=== PATIENT | female | born 2000 | race Caucasian/White ===

== ENCOUNTER 2023-03-18 17:10 | Observation (INO) | payer BC, OTHER | END 2023-03-18 19:28 | disposition home or self-care (01) | LOC: LDRP 17:10 | PROVIDERS: ADMIT Obstetrics & Gynecology; ATTEND Obstetrics & Gynecology | DX: O26.892 Other specified pregnancy related conditions, second trimester (principal); R10.9 Unspecified abdominal pain; Z3A.21 21 weeks gestation of pregnancy | CPT/HCPCS: 76815; 81002; 94760; G0378 ==

== ENCOUNTER 2023-06-20 10:06 | Observation (INO) | payer BC ==
[2023-06-20 11:30] LABS: Basophils # (auto) 0 10 ^3/uL (0-0.2); Basophils % (auto) 0.2 % (0.0-2.0); Eosinophils # (auto) 0.1 10 ^3/uL (0-0.8); Eosinophils % (auto) 1.1 % (0.0-7.0); Hematocrit 34.2 % (36.0-46.0); Hemoglobin 11.5 g/dL (12.2-16.2); Lymphocytes # (auto) 1.4 10 ^3/uL (0.4-5.4); Lymphocytes % (auto) 19.3 % (10.0-50.0); Mean Corpuscular Hemoglobin 30.5 pg (28.0-32.0); Mean Corpuscular Hgb Conc. 33.7 g/dL (32.0-36.0); Mean Corpuscular Volume 90.5 fL (80.0-100.0); Monocytes # (auto) 0.6 10 ^3/uL (0-1.3); Monocytes % (auto) 7.9 % (0.0-12.0); Neutrophils # (auto) 5.3 10 ^3/uL (1.6-8.6); Neutrophils % (auto) 71.5 % (37.0-80.0); Red Blood Cells 3.78 10^6/uL (4.0-5.20); Red Cell Distribution Width 12.7 % (11.8-14.3); White Blood Cell 7.4 10^3/uL (4.4-10.8)
[2023-06-20 11:54] LABS: Alanine Aminotransferase 36 U/L (7-40); Albumin 3.8 g/dL (3.2-4.8); Alkaline Phosphatase 147 U/L (46-116); Anion Gap 8 (5-15); Aspartate Aminotransferase 24 U/L (13-40); Bilirubin, Total 0.7 mg/dL (0.2-1.0); Calcium 8.7 mg/dL (8.5-10.1); Carbon Dioxide 22 mmol/L (20-30); Chloride 108 mmol/L (98-107); Glucose 76 mg/dL (74-106); Sodium 138 mmol/L (136-145); Total Protein 6.2 g/dL (5.7-8.2)
[2023-06-20 11:57] LABS: BUN/Creatinine Ratio 8.2 (10.0-20.0); Blood Urea Nitrogen < 5 mg/dL (9-23)
[2023-06-20] MEDS ORDERED: PREN-96 PO (12:11)
[2023-06-20] MEDS ORDERED: URSO300C2 PO (12:15)
== END 2023-06-20 12:22 | disposition home or self-care (01) ==
LOC: LDRP 10:06 → UNDOADMOB 10:06 → LDRP 10:27
PROVIDERS: ADMIT Obstetrics & Gynecology; ATTEND Obstetrics & Gynecology
DX: O26.643 Intrahepatic cholestasis of pregnancy, third trimester (principal); O26.893 Other specified pregnancy related conditions, third trimester; K83.1 Obstruction of bile duct; L29.9 Pruritus, unspecified; Z3A.35 35 weeks gestation of pregnancy
CPT/HCPCS: 36415; 59025; 80053; 81002; 85025; 94760; G0378

== ENCOUNTER 2023-06-23 18:25 | Observation (INO) | payer BC ==
[~2023-06-23 18:25] MED LIST: PREN-96 PO; URSO300C2 PO
== END 2023-06-23 20:08 | disposition home or self-care (01) ==
LOC: LDRP 18:25
PROVIDERS: ADMIT Obstetrics & Gynecology; ATTEND Obstetrics & Gynecology
DX: O26.643 Intrahepatic cholestasis of pregnancy, third trimester (principal); Z3A.35 35 weeks gestation of pregnancy
CPT/HCPCS: 59025; 76818; 81002; 94760; G0378

== ENCOUNTER 2023-06-26 19:00 | Observation (INO) | payer BC ==
[~2023-06-26] VITALS: Ht 152.4 cm; Wt 67.1 kg
== END 2023-06-26 21:04 | disposition home or self-care (01) ==
LOC: LDRP 19:00
PROVIDERS: ADMIT Obstetrics & Gynecology; ATTEND Obstetrics & Gynecology
DX: O26.643 Intrahepatic cholestasis of pregnancy, third trimester (principal); K83.1 Obstruction of bile duct; Z3A.36 36 weeks gestation of pregnancy
CPT/HCPCS: 59025; 76818; 81002; 94760; G0378

== ENCOUNTER 2023-06-29 19:05 | Observation (INO) | payer BC | END 2023-06-29 20:53 | disposition home or self-care (01) | LOC: LDRP 19:05 | PROVIDERS: ADMIT Obstetrics & Gynecology; ATTEND Obstetrics & Gynecology | DX: O26.643 Intrahepatic cholestasis of pregnancy, third trimester (principal); K83.1 Obstruction of bile duct; O62.9 Abnormality of forces of labor, unspecified; Z3A.36 36 weeks gestation of pregnancy | CPT/HCPCS: 59025; 76818; 81002; G0378 ==

== ENCOUNTER 2023-07-02 08:51 | Observation (INO) | payer BC | END 2023-07-02 11:23 | disposition home or self-care (01) | LOC: LDRP 09:33 | PROVIDERS: ADMIT Obstetrics & Gynecology; ATTEND Obstetrics & Gynecology | DX: O26.643 Intrahepatic cholestasis of pregnancy, third trimester (principal); K83.1 Obstruction of bile duct; Z3A.37 37 weeks gestation of pregnancy | CPT/HCPCS: 59025; 76818; 81002; G0378 ==

== ENCOUNTER 2023-07-04 18:50 | Observation (INO) | payer BC | END 2023-07-04 20:29 | disposition home or self-care (01) | LOC: LDRP 18:50 | PROVIDERS: ADMIT Obstetrics & Gynecology; ATTEND Obstetrics & Gynecology | DX: O26.643 Intrahepatic cholestasis of pregnancy, third trimester (principal); K83.1 Obstruction of bile duct; Z3A.37 37 weeks gestation of pregnancy | CPT/HCPCS: 59025; 76818; 94760; G0378 ==

== ENCOUNTER 2023-07-05 08:22 | Inpatient (IN) | payer BC ==
[~2023-07-05] VITALS: Ht 152.4 cm; Wt 68.0 kg
[2023-07-05] MEDS ORDERED: LACTATED RINGER'S 1,000 ML IV SCH (08:45)
[2023-07-05] MEDS ORDERED: PENICILLIN G POT 5MIL/D5 50ML 50 ML IV ONE ×2 (08:45→22:41)
[2023-07-05] MEDS ORDERED: WITCH HAZEL-GLYCERIN PAD TOP PRN (08:45)
[2023-07-05] MEDS ORDERED: LIDOCAINE 2%HCL (LOCAL ANESTH.) INJ 20ML MDV IJ PRN (08:45)
[2023-07-05] MEDS ORDERED: PROMETHAZINE HCL 25 MG/ML 1ML IV PRN (08:45)
[2023-07-05] MEDS ORDERED: DERMOPLAST 60ML BOTTLE TOP PRN (08:45)
[2023-07-05] MEDS ORDERED: LACT. RINGERS/OXYTOCIN 20UNITS 500 ML IV ONE ×2 (08:45→09:15)
[2023-07-05] MEDS ORDERED: PHISODERM TOP SOLN 240ML BTL TOP PRN (08:45)
[2023-07-05] MEDS ORDERED: BUTORPHANOL TARTRATE 2 MG/1 ML VIAL IV PRN ×2 (08:45)
[2023-07-05 10:04] LABS: Basophils # (auto) 0 10 ^3/uL (0-0.2); Basophils % (auto) 0.2 % (0.0-2.0); Eosinophils # (auto) 0.1 10 ^3/uL (0-0.8); Eosinophils % (auto) 0.6 % (0.0-7.0); Hemoglobin 11.8 g/dL (12.2-16.2); Lymphocytes # (auto) 1.2 10 ^3/uL (0.4-5.4); Lymphocytes % (auto) 13.8 % (10.0-50.0); Mean Corpuscular Hemoglobin 30.3 pg (28.0-32.0); Mean Corpuscular Hgb Conc. 33.8 g/dL (32.0-36.0); Mean Corpuscular Volume 89.5 fL (80.0-100.0); Monocytes # (auto) 0.6 10 ^3/uL (0-1.3); Monocytes % (auto) 6.7 % (0.0-12.0); Neutrophils % (auto) 78.7 % (37.0-80.0); Red Blood Cells 3.91 10^6/uL (4.0-5.20); Red Cell Distribution Width 12.1 % (11.8-14.3); White Blood Cell 8.9 10^3/uL (4.4-10.8)
[2023-07-05] MEDS ORDERED: miSOPROStol 50 MCG per PRE-CUT 1/2 TAB PO PRN (10:15)
[2023-07-05 10:18] LABS: Alanine Aminotransferase 35 U/L (7-40); Albumin 3.8 g/dL (3.2-4.8); Alkaline Phosphatase 184 U/L (46-116); Anion Gap 12 (5-15); Aspartate Aminotransferase 25 U/L (13-40); BUN/Creatinine Ratio 13.1 (10.0-20.0); Bilirubin, Total 0.5 mg/dL (0.2-1.0); Blood Urea Nitrogen 8 mg/dL (9-23); Calcium 9.3 mg/dL (8.5-10.1); Carbon Dioxide 20 mmol/L (20-30); Chloride 107 mmol/L (98-107); Glucose 98 mg/dL (74-106); Potassium 3.6 mmol/L (3.5-5.1); Sodium 139 mmol/L (136-145); Total Protein 6.3 g/dL (5.7-8.2)
[2023-07-05 10:35] LABS: Urine Bacteria FEW /hpf (None Seen); Urine Blood Negative /uL (Negative); Urine Clarity HAZY (Clear); Urine Color Colorless (Yellow); Urine Protein, UAD Negative (Negative); Urine Urobilinogen Normal (Negative); Urine WBC 16 /hpf (0 - 5); Urine pH 6.5 (5.0-8.0)
[2023-07-05 10:36] LABS: INR 0.98 (0.9-1.15); Partial Thromboplastin Time 25.4 SEC (24.5-34.5); Prothrombin Time 10.3 sec (9.3-11.8)
[2023-07-05 10:42] LABS: Amphetamine Screen, Urine Neg (NEGATIVE); Barbiturate Scree,Urine Neg (NEGATIVE); Benzodiazephine Screen, Urine Neg (NEGATIVE); Cocaine Screen, Urine Neg (NEGATIVE); Opiate Scree,Urine Neg (NEGATIVE)
[2023-07-05 10:43] LABS: Cannabinoid Screen, Urine Neg (NEGATIVE); Phencyclidine Screen, Urine Neg (NEGATIVE)
[2023-07-05] MEDS ORDERED: PENICILLIN G POTASSIUM 2,500,000 UNITS in D5W 5% 50 ML IV SCH (12:45)
[2023-07-05] MEDS ORDERED: LACT. RINGERS/OXYTOCIN 20UNITS 1,000 ML IV SCH (15:15)
[2023-07-05] MEDS ORDERED: TERBUTALINE SULFATE 1 MG/ML 1ML VIAL SC PRN (15:15)
[2023-07-05] MEDS ORDERED: URSODIOL 300 MG CAP PO SCH (22:00)
[2023-07-05] MEDS ORDERED: [UNRECOGNIZED DRUG - OTHER] PO SCH (22:00)
[2023-07-05] MEDS ORDERED: fentaNYL CITRATE 100 MCG/2 ML VL IV ONE (22:15)
[2023-07-05] MEDS ORDERED: LIDOCAINE HCL 2 %PF INJ 10ML AMP IJ ONE (22:15)
[2023-07-05] MEDS ORDERED: LACTATED RINGER'S 500 ML IV ONE (22:15)
[2023-07-05] MEDS ORDERED: ROPIVACAINE HCL 100 ML ONE (22:55)
[2023-07-05] MEDS ORDERED: ePHEDrine SULFATE 50 MG/ML AMP ONE (22:57)
[2023-07-06] MEDS ORDERED: MINERAL OIL TOPICAL 10ml TOP ONE ×2 (00:28→00:30)
[2023-07-06] MEDS ORDERED: MINERAL OIL TOPICAL 10ml TOP PRN (01:45)
[2023-07-06] MEDS ORDERED: IBUPROFEN 600 MG TAB PO PRN (01:45)
[2023-07-06] MEDS ORDERED: ACETAMINOPHEN 325 MG TAB PO PRN (01:45)
[2023-07-06 03:00] VITALS: BP 120/69; PULSE 80; RESP 18; TEMP 98.5; O2SAT 98
[2023-07-06 07:00] VITALS: PULSE 82; RESP 17; TEMP 98.2; O2SAT 97
[2023-07-06 08:06] LABS: RPR Non Reactive (Non Reactive)
[2023-07-06 10:40] VITALS: BP 123/74; PULSE 89; RESP 17; TEMP 98.3; O2SAT 96
[2023-07-06 15:18] VITALS: BP 121/67; PULSE 73; RESP 17; TEMP 98.1; O2SAT 98
[2023-07-06 19:00] VITALS: BP 133/68; PULSE 88; RESP 18; TEMP 97.9; O2SAT 96
[2023-07-06 20:23] LABS: Basophils # (auto) 0 10 ^3/uL (0-0.2); Basophils % (auto) 0.5 % (0.0-2.0); Eosinophils # (auto) 0 10 ^3/uL (0-0.8); Eosinophils % (auto) 0.5 % (0.0-7.0); Hematocrit 31.3 % (36.0-46.0); Hemoglobin 10.7 g/dL (12.2-16.2); Lymphocytes # (auto) 1.9 10 ^3/uL (0.4-5.4); Lymphocytes % (auto) 20.2 % (10.0-50.0); Mean Corpuscular Hemoglobin 31.1 pg (28.0-32.0); Mean Corpuscular Hgb Conc. 34.1 g/dL (32.0-36.0); Monocytes # (auto) 0.8 10 ^3/uL (0-1.3); Monocytes % (auto) 8.1 % (0.0-12.0); Neutrophils # (auto) 6.8 10 ^3/uL (1.6-8.6); Neutrophils % (auto) 70.7 % (37.0-80.0); Nucleated Red Blood Cells % 0.1 %; Red Blood Cells 3.44 10^6/uL (4.0-5.20); Red Cell Distribution Width 12.4 % (11.8-14.3); White Blood Cell 9.6 10^3/uL (4.4-10.8)
[2023-07-06] MEDS ORDERED: IBU600T PO (20:59)
[2023-07-06] MEDS ORDERED: FERR30CA PO (20:59)
[2023-07-06] MEDS ORDERED: DOCU-265 PO (20:59)
[2023-07-06] MEDS ORDERED: DOCUSATE SOD 100 MG CAP PO SCH (22:00)
[2023-07-06 23:00] VITALS: BP 118/69; PULSE 83; RESP 18; TEMP 98.2; O2SAT 97
[2023-07-07 03:00] VITALS: BP 118/60; PULSE 77; RESP 16; TEMP 98; O2SAT 97
[2023-07-07 07:20] VITALS: BP 127/65; PULSE 73; RESP 16; TEMP 98.4; O2SAT 96
[2023-07-07] MEDS ORDERED: TETANUS-DIPTH-ACEL PERTUSSIS 0.5ML SYR Tdap IM ONE (08:30)
[2023-07-07 10:05] VITALS: BP 113/78; PULSE 95; RESP 16; TEMP 98.4; O2SAT 98
[2023-07-11 19:06] LABS: Treponema pallidum Ab (FTA-Ab) Reactive (Non Reactive)
== END 2023-07-07 10:45 | disposition home or self-care (01) | DRG 807 ==
LOC: OBSVTOIN 08:22 → LDRP 08:22 → UNDOADMOB 08:29 → LDRP 07-06 05:05
PROVIDERS: ADMIT Obstetrics & Gynecology; ATTEND Obstetrics & Gynecology
PROC: 10E0XZZ Delivery of Products of Conception, External Approach (ICD-10-PCS; principal; 2023-07-06)
PROC: 3E0R3BZ Introduction of Anesthetic Agent into Spinal Canal, Percutaneous Approach (ICD-10-PCS; 2023-07-06)
PROC: 00HU33Z Insertion of Infusion Device into Spinal Canal, Percutaneous Approach (ICD-10-PCS; 2023-07-06)
PROC: 10907ZC Drainage of Amniotic Fluid, Therapeutic from Products of Conception, Via Natural or Artificial Opening (ICD-10-PCS; 2023-07-06)
PROC: 3E0234Z Introduction of Serum, Toxoid and Vaccine into Muscle, Percutaneous Approach (ICD-10-PCS; 2023-07-07)
DX: O26.62 Liver and biliary tract disorders in childbirth (principal); Z37.0 Single live birth; O69.81X0 Labor and delivery complicated by cord around neck, without compression, not applicable or unspecified; E78.79 Other disorders of bile acid and cholesterol metabolism; K76.89 Other specified diseases of liver; O99.02 Anemia complicating childbirth; Z3A.37 37 weeks gestation of pregnancy; Z23 Encounter for immunization
CPT/HCPCS: 36415; 59025; 59409; 62282; 80053; 80307; 81001; 81002; 85025; 85610; 85730; 86592; 86850; 86900; 86901; 90715; 94760; 94762; 96360; 96361; 96365; 96366; 96372; G0378; J2540; J2590; J7060

== ENCOUNTER 2025-02-02 18:38 | Emergency (ER) | payer BC ==
[~2025-02-02] VITALS: Ht 152.4 cm; Wt 64.9 kg
[~2025-02-02 18:38] MED LIST changes: +DOCU-265 PO; +FERR30CA PO; +IBU600T PO; -URSO300C2 PO
[2025-02-02 18:51] VITALS: TEMP 97.9
[2025-02-02] MEDS: SODIUM CHLORIDE 0.9% 1,000 ML IV ONE (19:00)
[2025-02-02 19:16] LABS: Hematocrit 34.6 % (36.0-46.0); Hemoglobin 11.9 g/dL (12.2-16.2); Mean Corpuscular Hemoglobin 30.4 pg (28.0-32.0); Mean Corpuscular Volume 88.1 fL (80.0-100.0); Nucleated Red Blood Cells % 0.1 %
[2025-02-02 19:25] LABS: Alanine Aminotransferase 22 U/L (7-40); Albumin 4.2 g/dL (3.2-4.8); Alkaline Phosphatase 115 U/L (46-116); Anion Gap 11 (5-15); BUN/Creatinine Ratio 9.9 (10.0-20.0); Calcium 9.5 mg/dL (8.7-10.4); Carbon Dioxide 23 mmol/L (20-31); Chloride 104 mmol/L (98-107); Glucose 94 mg/dL (74-106); Potassium 3.7 mmol/L (3.5-5.1); Sodium 138 mmol/L (136-145); Total Protein 6.7 g/dL (5.7-8.2)
[2025-02-02 19:26] LABS: Bilirubin, Total 0.6 mg/dL (0.2-1.0)
[2025-02-02 19:34] LABS: Urine Protein, UAD Negative (Negative)
[2025-02-02 19:38] LABS: Blood Urea Nitrogen 7 mg/dL (9-23)
[2025-02-02 19:39] LABS: Amphetamine Screen, Urine Neg (NEGATIVE); Barbiturate Scree,Urine Neg (NEGATIVE); Benzodiazephine Screen, Urine Neg (NEGATIVE); Cannabinoid Screen, Urine Neg (NEGATIVE); Cocaine Screen, Urine Neg (NEGATIVE); Opiate Scree,Urine Neg (NEGATIVE); Phencyclidine Screen, Urine Neg (NEGATIVE)
[2025-02-02 19:40] VITALS: BP 119/68; PULSE 83; RESP 18; O2SAT 98
--- NOTE | 2025-02-02 19:41 | ED.PDOC ---
GI ASSESSMENT HPI Comments 24y F who presents to the ED for chief complaint of nausea and vomiting. Pt states she is currently 33 weeks , , and states 1-2 hours earlier, she was out at restaurant and states she suddenly started to lose peripheral vision in R eye, R arm numbness and then preceded to feel nauseous with associated vomiting episode. Pt states he also had episode of diarrhea afterwards. Pt states afterwards, she felt his generalized weakness and came to the ED for further evaluation. Pt in the ED, states her symptoms had gone away but states she still feels very weak in the ED. Pt otherwise has stable vitals in the ED. Pt denies any other symptoms at this time. Chief Complaint: Nausea/Vomiting Time Seen by MD: 19:39 Reviewed Notes: Medications, Allergies Allergies: Coded Allergies: NO KNOWN ALLERGIES (Unverified , 06/26/23) Home Meds Active Scripts Ferric Maltol (Accrufer) 30 Mg Cap, 30 MG PO BID for 30 Days, #60 CAP 3 Refills take twice a day on an empty stomach, either 1 hour before or 2 hours after a meal Prov:SHWETA ELLINGTON [facility] 07/06/23 Ibuprofen Micronized (MOTRIN TABLET) 600 Mg Tb, 600 MG PO Q6HP PRN for 20 Days, #80 TAB Prov:SHWETA ELLINGTON [facility] 07/06/23 Docusate Sodium (Docusate Sodium) 100 Mg Cap, 100 MG PO HS PRN for 30 Days, #30 CAP 3 Refills Prov:SHWETA ELLINGTON [facility] 07/06/23 Reported Medications Vit W/ Ferrous Fumara ( One Daily) Daily Tab, 1 TAB PO DAILY, #30 TAB 11 Refills 06/20/23 Information Source: Patient, Significant Other Mode of Arrival: Ambulatory Constitutional: reports: malaise, weakness All Other Systems: Reviewed and Negative (see HPI) Physical Exam General Appearance: No Apparent Distress, Normal HEENT: Normal ENT Inspection, Pharynx Normal, TMs Normal Neck: Full Range of Motion, Non-Tender, Normal, Normal Inspection Respiratory: Chest Non-Tender, Lungs Clear, No Accessory Muscle Use, No Respiratory Distress, Normal Breath Sounds Cardiovascular: No Edema, No JVD, No Murmur, No Gallop, Normal Peripheral Pulses, Regular Rate/Rhythm Breast Exam: Deferred Gastrointestinal: No Organomegaly, Non Tender, No Pulsatile Mass, Normal Bowel Sounds, Soft Genitalia: Deferred Pelvic: Deferred Rectal: Deferred Extremities: No calf tenderness, Normal capillary refill, Normal inspection, Normal range of motion, Non-tender, No pedal edema Musculoskeletal : Apperance: Normal Neurologic: Alert, custom tailor apprentice II-XII nml as Tested, No Motor Deficits, Normal Affect, Normal Mood, No Sensory Deficits Cerebellar Function: Normal Reflexes: Normal Skin: Dry, Normal Color, Warm Lymphatic: No Adenopathy Was a procedure done? Was a procedure done?: No GI differential Dx Differential Diagnosis: Gastritis/PUD, Gastroenteritis, UTI, Dehydration, Diabetes/ DKA, Drug toxicity, Electrolyte Imbalance, Food Poisoning, , Hypovolemia, Anemia, Other (anxiety, tia, cva, partial seizure, preecclampsia, ecclapmsia) X-Ray, Labs, Meds, VS Vital Signs Date Time Temp Pulse Resp B/P (MAP) Pulse Ox O2 Delivery O2 Flow Rate FiO2 02/02/25 19:40 83 20 119/68 (85) 98 02/02/25 19:40 83 18 98 Room Air 02/02/25 18:51 97.9 100 16 140/80 (100) 99 97.9 Lab Test 02/02/25 19:12 02/02/25 18:56 Range/Units Urine Color Light-yellow Yellow Urine Clarity Clear Clear Urine pH 6.0 5.0-9.0 Urine Specific Ovid 1.015 1.001-1.035 Urine Protein Negative Negative Urine Ketones 2+ H Negative Urine Blood Negative Negative /uL Urine Nitrite Negative Negative Urine Bilirubin Negative Negative Urine Urobilinogen Normal Negative mg/dL Urine Leukocyte Esterase Negative Negative /uL Urine RBC 2 0 - 4 /hpf Urine Microscopic WBC 3 0-5 /HPF Urine Squamous Epithelial Cells Few <5 /hpf Urine Bacteria None seen None Seen /hpf Urine Mucus Few None Seen Urine Glucose Normal Normal mg/dL Urine Opiates Screen Neg NEGATIVE Urine Fentanyl Screen Neg NEGATIVE Urine Barbiturates Screen Neg NEGATIVE Urine Phencyclidine Screen Neg NEGATIVE Urine Amphetamines Screen Neg NEGATIVE Urine Benzodiazepines Screen Neg NEGATIVE Urine Cocaine Screen Neg NEGATIVE Urine Cannabinoids Screen Neg NEGATIVE White Blood Count 8.8 4.4-10.8 10^3/uL Red Blood Count 3.93 L 4.0-5.20 10^6/uL Hemoglobin 11.9 L 12.2-16.2 g/dL Hematocrit 34.6 L 36.0-46.0 % Mean Corpuscular Volume 88.1 80.0-100.0 fL Mean Corpuscular Hemoglobin 30.4 28.0-32.0 pg Mean Corpuscular Hemoglobin Concent 34.5 32.0-36.0 g/dL Red Cell Distribution Width 12.8 11.8-14.3 % Platelet Count 234 140-450 10^3/uL Mean Platelet Volume 7.1 6.9-10.8 fL Neutrophils (%) (Auto) 79.2 37.0-80.0 % Lymphocytes (%) (Auto) 14.8 10.0-50.0 % Monocytes (%) (Auto) 5.4 0.0-12.0 % Eosinophils (%) (Auto) 0.4 0.0-7.0 % Basophils (%) (Auto) 0.2 0.0-2.0 % Neutrophils # (Auto) 7.0 1.6-8.6 10 ^3/uL Lymphocytes # (Auto) 1.3 0.4-5.4 10 ^3/uL Monocytes # (Auto) 0.5 0-1.3 10 ^3/uL Eosinophils # (Auto) 0 0-0.8 10 ^3/uL Basophils # (Auto) 0 0-0.2 10 ^3/uL Nucleated Red Blood Cells 0.1 % Sodium Level 138 136-145 mmol/L Potassium Level 3.7 3.5-5.1 mmol/L Chloride Level 104 98-107 mmol/L Carbon Dioxide Level 23 20-31 mmol/L Anion Gap 11 5-15 Blood Urea Nitrogen 7 L 9-23 mg/dL Creatinine 0.71 0.550-1.02 mg/dL Glomerular Filtration Rate Calc 121 >90 mL/min BUN/Creatinine Ratio 9.9 L 10.0-20.0 Serum Glucose 94 74-106 mg/dL Calcium Level 9.5 8.7-10.4 mg/dL Total Bilirubin 0.6 0.2-1.0 mg/dL Aspartate Amino Transferase (AST) 25 13-40 U/L Alanine Aminotransferase (ALT) 22 7-40 U/L Alkaline Phosphatase 115 46-116 U/L Total Protein 6.7 5.7-8.2 g/dL Albumin 4.2 3.2-4.8 g/dL Current Medications Medications (Trade) Dose Ordered Sig/Goran Route Start Time Stop Time Status Last Admin Sodium Chloride 1,000 ml @ 150 mls/hr Q6H40M ONCE IV 02/02/25 19:00 02/03/25 01:39 02/02/25 19:00 Time of 1ST Reevaluation: 20:10 Reevaluation 1ST: Unchanged Time of 2ND Reevaluation: 20:00 Reevaluation 3RD: Resolved Patient Education/Counseling: Diagnosis, Treatment, Prognosis, Need For Follow Up Family Education/Counseling: Diagnosis, Treatment, Prognosis, Need For Follow Up SEPSIS Sepsis Screen Date sepsis recognized/suspect: Feb 02, 2025 Time Sepsis recognized/suspect: 1842 Recent Procedure: No On Antibiotic Therapy: No Respiratory Rate >20: No Heart Rate >90: Yes Temp<36 C (96.8 F) or >38.3 C: No SBP <90 or MAP <65 mmHG: No New Acute Mental Status Change: No Is the patient on CPAP, BIPAP,: No Physician Orders Accucheck (02/02/25 18:47) Electrocardigram (02/02/25 18:47) Electrocardigram (02/02/25 19:47) Sodium Chloride 0.9% (02/02/25 19:00) Vital Signs Date Time Temp Pulse Resp B/P (MAP) Pulse Ox O2 Delivery O2 Flow Rate FiO2 02/02/25 19:40 83 20 119/68 (85) 98 02/02/25 19:40 83 18 98 Room Air 02/02/25 18:51 97.9 100 16 140/80 (100) 99 97.9 Laboratory Tests Test 02/02/25 18:56 White Blood Count 8.8 10^3/uL (4.4-10.8) Medications Medications Dose Ordered Sig/Goran Route Start Time Stop Time Status Last Admin Dose Admin Sodium Chloride 1,000 ml @ 150 mls/hr Q6H40M ONCE IV 02/02/25 19:00 02/03/25 01:39 02/02/25 19:00 Departure 1 Departure Time of Disposition: 20:00 Impression: Primary Impression: Paresthesia Additional Impressions: Weakness Disposition: HOME / SELF CARE / HOMELESS Condition: Good Discharged With: Self, Spouse Critical Care Note Critical Care Time?: Yes (55 min-critical care time only) Critical care comment: due to concerns for patient's condition deteriorating, the care required my highest level of attention and readiness to intervene. i assessed the patient's condition, ordered the proper tests and treatments, reassessed for response and reviewed the results. i communicated with medical personnel and formulated a plan of care. total critical care time does not include any procedures Stability Stability form required: No Heart Score Heart Score: Heart Score Response (Comments) Value History N/A 0 EKG N/A 0 Age N/A 0 Risk Factors N/A 0 Troponin N/A 0 Total 0 I personally scribed for ABHISHEK AREVALO MD ([email or web address]) on 02/02/25 at 19:41. Electronically submitted by Artie Hercules ([email or web address]). ABHISHEK AREVALO MD Feb 02, 2025 19:41
== END 2025-02-02 20:29 | disposition home or self-care (01) ==
LOC: ER 18:38
DX: O99.891 Other specified diseases and conditions complicating pregnancy (principal); Z3A.33 33 weeks gestation of pregnancy; Z79.899 Other long term (current) drug therapy
CPT/HCPCS: 36415; 80053; 80307; 81001; 85025; 96360; 99283; J7030

== ENCOUNTER 2025-02-18 10:45 | Observation (INO) | payer BC ==
--- NOTE | 2025-02-18 11:34 | DVH ---
BIOPHYSICAL PROFILE HISTORY: Rule out IUGR TECHNIQUE: Multiple transabdominal real-time grayscale sonographic images through the gravid uterus o f the fetus with duplex doppler color flow and M-mode spectral analysis FINDINGS: BIOPHYSICAL PROFILE: breathing score: 2 movement score: 2 tone score: 2 Quantitative ELFEGO score: 2 (ELFEGO: 10.6 cm.) Total score: 8/8 Single live fetus in cephalic presentation. heart rate 131 beats per minute. Anterior placenta without previa or abruption Biophysical profile score 8/8 corresponding to an PACO of 03/19/25 IMPRESSION: Biophysical profile score: 8/8
--- NOTE | 2025-02-18 13:25 | DVHDS2 ---
Physician Discharge Progress N Final Diagnosis: testing for rule out IUGR Operations or Procedures: Operations or Procedures 24yo IUP@35.6wks, denies UCs/VB/LOF VSS NST reactive FKC/PTL precautions reviewed. Dr. Mendieta ordered NST/BPP and wants pt to f/u weekly Other Interventions Other Interventions [place] [address] Ph: [phone] DIAGNOSTIC IMAGING Diagnostic Imaging Report : [id number] Signed PATIENT: TIFFANI HARRY JACCT: [id number] UNIT: [id number] : 2000 LOC: [facility] ROOM / BED: TRIAGE1 / A AGE / SEX: 24 / F ADM STATUS: ADM IN SERVICE 1051 ORDERING PHYSICIAN: SHWETA ELLINGTON CNM PROCEDURE(s): BPP - BIOPHYSICAL PROFILE REASON: Rule out IUGR ORDER NUMBER(s): [id number], ACCESSION NUMBER(s): [id number] BIOPHYSICAL PROFILE HISTORY: Rule out IUGR TECHNIQUE: Multiple transabdominal real-time grayscale sonographic images through the gravid uterus of the fetus with duplex doppler color flow and M-mode spectral analysis FINDINGS: BIOPHYSICAL PROFILE: breathing score: 2 movement score: 2 tone score: 2 Quantitative ELFEGO score: 2 (ELFEGO: 10.6 cm.) Total score: 8/8 Single live fetus in cephalic presentation. heart rate 131 beats per minute. Anterior placenta without previa or abruption Biophysical profile score 8/8 corresponding to an PACO of 03/19/25 IMPRESSION: Biophysical profile score: 8/8 ATED BY: CHAD DAWN MD DICTATED DATE/TIME: 02/18/25 113 SIGNED BY: CHAD DAWN MD SIGNED DATE/TIME: 02/18/25 113 CC: Condition on Discharge: Stable Disposition: Home Discharge Instructions: Diet: Regular Activity: No Restrictions, As Tolerated Medications: see med list Follow Up Care: Specialist: f/u 1 wk Discharge Statement: "Patient was advised to return to the ER or call 911 if any headaches, dizziness, shortness of breath, chest pain, abdominal pain, bleeding, fevers, or worsening of medical condition. Patient was counseled about treatment plan, medications, possible side effects, patientverbalized understanding. All questions were answered to the best of my ability. This discharge took greater then 30 minutes in planning, reviewing documentation, counseling the patient, and discussing with other team members." Visit Coding OBGYN Date of Service: Feb 18, 2025 Billing Provider: SHWETA ELLINGTON CNM ORGANIC CHEMIST Common Visit Codes: [id number] OBS CARE (HIGH) ORGANIC CHEMIST Procedure Codes: 34213-26- NON-STRESS TEST SHWETA ELLINGTON CNM Feb 18, 2025 13:25
== END 2025-02-18 12:03 | disposition home or self-care (01) ==
LOC: UNDOADMOB 10:45 → LDRP 10:45
PROVIDERS: ADMIT Obstetrics & Gynecology; ATTEND Obstetrics & Gynecology
DX: Z36.89 Encounter for other specified antenatal screening (principal); Z3A.35 35 weeks gestation of pregnancy; Z98.890 Other specified postprocedural states; Z79.899 Other long term (current) drug therapy
CPT/HCPCS: 76818; 81002; 94760; G0378; 59025; 76819

== ENCOUNTER 2025-02-25 10:50 | Observation (INO) | payer BC ==
--- NOTE | 2025-02-25 12:10 | DVH ---
EXAM: US BIOPHYSICAL PROFILE HISTORY: IUGR COMPARISON: US BIOPHYSICAL PROFILE on DOS: 02/18/25 TECHNIQUE: Transabdominal and endovaginal real time youngblood scale, color, and doppler evaluation. Perman ent images are maintained in the patient record. FINDINGS: Normal biophysical profile score. 02/14. heart rate 146 beats per minute. Cephalic presentation . Anterior placenta location. Amniotic fluid index measures 11 cm. No placenta abruption or previa. IMPRESSION: 1. Single viable gestation with normal cardiac heart rate. 2. Normal biophysical profile score
--- NOTE | 2025-02-25 13:58 | DVHDS2 ---
Physician Discharge Progress N Final Diagnosis: testing for rule out IUGR Operations or Procedures: Operations or Procedures 24yo IUP@36.6wks. +FM, denies VB/UCs/LOF. VSS NST reactive FKC/PTL precautions reviewed. Dr. Mendieta consulted, agrees with POC. Pt is to f/u with Dr. Mendieta in office weekly, no need for testing anymore. Other Interventions Other Interventions [place] [address] Ph: [phone] DIAGNOSTIC IMAGING Diagnostic Imaging Report : [id number] Signed PATIENT: TIFFANI HARRY JACCT: [id number] UNIT: [id number] : 2000 LOC: [facility] ROOM / BED: TRIAGE3 / A AGE / SEX: 24 / F ADM STATUS: ADM IN SERVICE 1100 ORDERING PHYSICIAN: SHWETA ELLINGTON CNM PROCEDURE(s): BPP - BIOPHYSICAL PROFILE REASON: IUGR ORDER NUMBER(s): [id number], ACCESSION NUMBER(s): [id number] EXAM: US BIOPHYSICAL PROFILE HISTORY: IUGR COMPARISON: US BIOPHYSICAL PROFILE on DOS: 02/18/25 TECHNIQUE: Transabdominal and endovaginal real time youngblood scale, color, and doppler evaluation. Permanent images are maintained in the patient record. FINDINGS: Normal biophysical profile score. 8/8. heart rate 146 beats per minute. Cephalic presentation. Anterior placenta location. Amniotic fluid index measures 11 cm. No placenta abruption or previa. IMPRESSION: 1. Single viable gestation with normal cardiac heart rate. 2. Normal biophysical profile score ATED BY: ZOEY VU MD DICTATED DATE/TIME: 02/25/25 120 SIGNED BY: ZOEY VU MD SIGNED DATE/TIME: 02/25/25 120 CC: Condition on Discharge: Stable Disposition: Home Discharge Instructions: Diet: Regular Activity: No Restrictions, As Tolerated Follow Up/Referral: Keep all OB appointments. NO further monitoring required in [facility] Medications: see med list Follow Up Care: Specialist: Pt is to f/u with Dr. Mendieta in office weekly Discharge Statement: "Patient was advised to return to the ER or call 911 if any headaches, dizziness, shortness of breath, chest pain, abdominal pain, bleeding, fevers, or worsening of medical condition. Patient was counseled about treatment plan, medications, possible side effects, patientverbalized understanding. All questions were answered to the best of my ability. This discharge took greater then 30 minutes in planning, reviewing documentation, counseling the patient, and discussing with other team members." Visit Coding OBGYN Date of Service: Feb 25, 2025 Billing Provider: SHWETA ELLINGTON CNM MANAGER HEAVY DUTY Common Visit Codes: [id number] OBS CARE (HIGH) MANAGER HEAVY DUTY Procedure Codes: 80193-74- NON-STRESS TEST SHWETA ELLINGTON CNM Feb 25, 2025 13:58
== END 2025-02-25 12:50 | disposition home or self-care (01) ==
LOC: LDRP 10:50
PROVIDERS: ADMIT Obstetrics & Gynecology; ATTEND Obstetrics & Gynecology
DX: Z36.89 Encounter for other specified antenatal screening (principal); Z3A.36 36 weeks gestation of pregnancy; Z98.890 Other specified postprocedural states; Z79.899 Other long term (current) drug therapy
CPT/HCPCS: 76818; 81002; 94760; G0378; 59025; 76819

== ENCOUNTER 2025-03-12 08:54 | Inpatient (IN) | payer BC ==
[~2025-03-12] VITALS: Ht 152.4 cm; Wt 65.3 kg
[2025-03-12] MEDS ORDERED: BUTORPHANOL TARTRATE 2 MG/1 ML VIAL IV PRN ×2 (09:15)
[2025-03-12] MEDS ORDERED: LIDOCAINE 2%HCL (LOCAL ANESTH.) INJ 20ML MDV IJ PRN (09:15)
--- NOTE | 2025-03-12 09:20 | DVHHP2 ---
OB CC & HPI Date Date of Admission: Mar 12, 2025 Patient Identification: : 2 Para: 1 EDC: Mar 19, 2025 EGA: 39wks Chief Complaints: Reason for admission: active labor Admission Nurse Assessment Rev: No History of Present Complaints pt is admitted for active lABOR,NO ROM OR VAG BLEEDINHG Past Medical History Cardiac: No pertinent Hx Pulmonary: No pertinent Hx Central Nervous System: No pertinent Hx GI: No pertinent Hx Hemotology/Oncology: No pertinent Hx Hepatobiliary: No pertinent Hx Psychiatric: No pertinent Hx Musculoskeletal: No pertinent Hx Rheumotologic: No pertinent Hx Infectious Disease: No peritnent Hx ENT: No pertinent Hx Renal/: No pertinent Hx Endocrine: No pertinent Hx Dermatology: No pertinent Hx Past Surgical History: No pertinent Hx OB History OB History Care: Good Care Ultrasounds: Normal mid trimester US Obstetrical Complications: None Medical Complications: None Allergies: Coded Allergies: NO KNOWN ALLERGIES (Unverified , 06/26/23) Home Meds Active Scripts Ferric Maltol (Accrufer) 30 Mg Cap, 30 MG PO BID for 30 Days, #60 CAP 3 Refills take twice a day on an empty stomach, either 1 hour before or 2 hours after a meal Prov:SHWETA ELLINGTON [facility] 07/06/23 Ibuprofen Micronized (MOTRIN TABLET) 600 Mg Tb, 600 MG PO Q6HP PRN for 20 Days, #80 TAB Prov:SHWETA ELLINGTON [facility] 07/06/23 Docusate Sodium (Docusate Sodium) 100 Mg Cap, 100 MG PO HS PRN for 30 Days, #30 CAP 3 Refills Prov:SHWETA ELLINGTON [facility] 07/06/23 Reported Medications Vit W/ Ferrous Fumara ( One Daily) Daily Tab, 1 TAB PO DAILY, #30 TAB 11 Refills 06/20/23 Current Medications Current Medications Medications (Trade) Dose Ordered Sig/Goran Route PRN Reason Start Time Stop Time Status Last Admin Lactated Ringer's 1,000 ml @ 125 mls/hr Q8H IV 03/12/25 09:15 UNV Witch Mary (Tucks) 1 pad PRN PRN TOP PERINEAL AREA DISCOMFORT 03/12/25 09:15 UNV Sodium Lauryl Sulfate (Phisoderm) 240 ml PRN PRN TOP PERINEAL AREA DISCOMFORT 03/12/25 09:15 UNV Benzocaine (Dermoplast) 1 applic PRN PRN TOP PERINEAL AREA DISCOMFORT 03/12/25 09:15 UNV Butorphanol Tartrate (Stadol Injection) 1 mg Q4HPRN PRN IV MODERATE PAIN (4-6 PAIN SCALE) 03/12/25 09:15 UNV Butorphanol Tartrate (Stadol Injection) 2 mg Q4HPRN PRN IV SEVERE PAIN (7-10 PAIN SCALE) 03/12/25 09:15 UNV Lidocaine HCl (Xylocaine) 20 ml ONCE PRN IJ PERINEAL AREA DISCOMFORT 03/12/25 09:15 UNV Family & Social History Family/Social History Blood Type: Unknown Rubella: unknown RPR/VDRL: Negative GBS Status: Negative HBsAG: Negative Review of Systems Constitutional: No symptom reported Ears, Nose, & Throat: No symptom reported Eyes: No symptom reported Pulmonary/Respiratory: No symptom reported Cardiovascular: No symptom reported Gastrointestinal: No symptom reported Genitourinary: No symptom reported Musculoskeletal: No symptom reported Skin: No symptom reported Psychiatric: No symptom reported Endocrine: No symptom reported Hemotologic/Lymphatic: No symptom reported OB Admission Exam Physical Exam HEENT: TMs Normal, Fontanelles Normal, Nasal Mucosa Normal, Eyes non-injected, Oropharynx Normal, PERRLA, Moist Membranes, EOMI Heart: Rhythm Normal Lungs: Clear Abdomen: Non tender Extremities: Normal Reflexes: Normal Cervical Dilatation: 6cm Effacement: 75% Station: -2 Membranes: Intact Heart Rate: 130's Accelerations: Accelerations Present Decelerations: No Decelerations Short Term Variability: Present Junior Brand Manager Variability: Average (6-25) Contractions on Admission: < 5 Minutes Apart Intensity: Moderate OB Plan Plan Admitting Diagnosis: IUP AT 39WKS IN ACTIVE labor Plan: Expectant Management Other Plan: INFORMED CONSENT OBTAINED Visit Coding OBGYN Date of Service: Mar 12, 2025 Billing Provider: KIMBERLY ENG DO ROLL TENDER Common Visit Codes: [id number] OBS CARE (HIGH) ROLL TENDER Procedure Codes: 64384-29- NON-STRESS TEST KIMBERLY ENG DO Mar 12, 2025 09:20
[2025-03-12 09:35] LABS: Hematocrit 33.8 % (36.0-46.0); Hemoglobin 11.4 g/dL (12.2-16.2); Mean Corpuscular Hemoglobin 29.5 pg (28.0-32.0); Mean Corpuscular Volume 87.8 fL (80.0-100.0); Nucleated Red Blood Cells % 0.0 %
[2025-03-12 09:44] LABS: Urine Protein, UAD Negative (Negative)
[2025-03-12] MEDS ORDERED: NALOXONE HCL 0.4 MG/ML VIAL IV ONE (09:45)
[2025-03-12] MEDS: LACTATED RINGER'S 1,000 ML IV SCH (09:49)
[2025-03-12 09:50] LABS: INR 1.02 (0.9-1.15); Partial Thromboplastin Time 25.1 SEC (24.5-34.5); Prothrombin Time 10.8 sec (9.3-11.8)
[2025-03-12] MEDS: ROPIVACAINE HCL 100 ML ONE (09:50)
[2025-03-12] MEDS: DERMOPLAST 60ML BOTTLE TOP PRN (09:54)
[2025-03-12] MEDS: PHISODERM TOP SOLN 240ML BTL TOP PRN (09:54)
[2025-03-12] MEDS: WITCH HAZEL-GLYCERIN PAD TOP PRN (09:54)
[2025-03-12 09:55] LABS: Alanine Aminotransferase 17 U/L (7-40)
[2025-03-12 09:56] LABS: Albumin 3.6 g/dL (3.2-4.8); Anion Gap 11 (5-15); BUN/Creatinine Ratio 10.3 (10.0-20.0); Bilirubin, Total 0.5 mg/dL (0.2-1.0); Glucose 86 mg/dL (74-106); Sodium 138 mmol/L (136-145); Total Protein 6.3 g/dL (5.7-8.2)
[2025-03-12] MEDS: LACT. RINGERS/OXYTOCIN 20UNITS 1,000 ML IV ONE (09:56)
[2025-03-12 10:00] LABS: Alkaline Phosphatase 159 U/L (46-116); Blood Urea Nitrogen 7 mg/dL (9-23); Calcium 8.3 mg/dL (8.7-10.4); Carbon Dioxide 20 mmol/L (20-31); Chloride 107 mmol/L (98-107); Potassium 3.3 mmol/L (3.5-5.1)
[2025-03-12 10:01] LABS: Amphetamine Screen, Urine Neg (NEGATIVE); Barbiturate Scree,Urine Neg (NEGATIVE); Benzodiazephine Screen, Urine Neg (NEGATIVE); Cannabinoid Screen, Urine Neg (NEGATIVE); Cocaine Screen, Urine Neg (NEGATIVE); Opiate Scree,Urine Neg (NEGATIVE); Phencyclidine Screen, Urine Neg (NEGATIVE)
[2025-03-12] MEDS: LACT. RINGERS/OXYTOCIN 20UNITS 500 ML IV ONE ×2 (11:53→11:54)
[2025-03-12] MEDS ORDERED: ACETAMINOPHEN 325 MG TAB PO PRN (12:00)
--- NOTE | 2025-03-12 12:50 | LDN2 ---
Labor and Delivery Note Date 03/12/25 Age 24 2 Para 2 EDC 9-10 EGA 39wks Diagnosis labor Vaginal Delivery: VTX Vacuum Assisted: No Placenta: Spontaneous Sex: Female Nuchal Cord Transected: No Amniotic Fluid: Clear Anesthesia epidural Episiotomy: No Extension: No EBL 300ml Labs Blood Bank 03/12/25 09:15: Blood Type O POSITIVE Complications none pt had declined afp and nipt ,cancelled mfm apt Comments/Significant Med Falguni spec exam no cxal lac Visit Coding OBGYN Date of Service: Mar 12, 2025 Billing Provider: KIMBERLY ENG DO COATINGS INSPECTOR Common Visit Codes: [id number] OBS CARE (HIGH) COATINGS INSPECTOR Procedure Codes: [id number]-WJX DELIVERY ONLY KIMBERLY ENG DO Mar 12, 2025 12:50
[2025-03-12] MEDS: IBUPROFEN 600 MG TAB PO PRN (13:10)
[2025-03-12 15:24] VITALS: BP 116/56; PULSE 77; RESP 18; TEMP 98.7; O2SAT 97
[2025-03-12] MEDS ORDERED: IBU600T PO (18:13)
[2025-03-12] MEDS ORDERED: DOCU-265 PO (18:13)
--- NOTE | 2025-03-12 18:20 | DVHPN2 ---
Progress Note Date Seen: Mar 12, 2025 Subjective S: Pt requesting to be discharged tonight so she can go see her baby in [facility]. bleeding is less, eating food without issues, denies lightheaded/dizziness, no concerns with urinating, passing flatus, no BM yet, ambulating well, using breast pump vital signs Vital Sign Date Time Temp Pulse Resp B/P (MAP) Pulse Ox O2 Delivery O2 Flow Rate FiO2 03/12/25 15:24 98.7 77 18 116/56 (76) 97 98.7 03/12/25 13:00 Room Air medications Current Medications Medications Dose Ordered Sig/Goran Route Start Time Stop Time Status Last Admin Dose Admin Lactated Ringer's 1,000 ml @ 125 mls/hr Q8H IV 03/12/25 09:15 03/12/25 09:49 125 MLS/HR Witch Mary 1 pad PRN PRN TOP 03/12/25 09:15 03/12/25 09:54 1 PAD Sodium Lauryl Sulfate 240 ml PRN PRN TOP 03/12/25 09:15 03/12/25 09:54 240 ML Benzocaine 1 applic PRN PRN TOP 03/12/25 09:15 03/12/25 09:54 1 APPLIC Ibuprofen 600 mg Q6HP PRN PO 03/12/25 12:00 03/12/25 13:10 600 MG Acetaminophen 650 mg Q4HP PRN PO 03/12/25 12:00 laboratory and microbiology Laboratory Tests 03/12/25 09:15 Test 03/12/25 09:15 Range/Units Serum Glucose 86 74-106 mg/dL Objective O: VSS Chest: heart sounds normal and lung sounds clear bilaterally Abd: soft, non-tender, fundus at U/firm/midline, active bowel sounds, no rebound or guarding Perineum: intact, 1+ edema noted, no erythema noted (ice pack applied to perineum) Ext: Non-tender, No edema, 2+ BLE DTRs Lochia: minimal Problems(with codes): (1) (normal spontaneous vaginal delivery) (2) Intact perineum Assessment/Plan A: 24yo now PPD#0 s/p Intact perineum Rh+ Rubella Immune Pumping breast milk, baby in NICU at [facility] P: D/C home tonight Rx sent to pharmacy precautions and preeclampsia warning signs reviewed F/U with [facility] OB office in 2 weeks with Rcik Patel CNM Plan discussed with: Patient Visit Coding OBGYN Date of Service: Mar 12, 2025 Billing Provider: SHWETA PATEL CNM HEADER UP Common Visit Codes: [id number] INP/OBS CARE(LOW) SHWETA PATEL CNM Mar 12, 2025 18:20
--- NOTE | 2025-03-12 18:21 | DVHDS2 ---
Obstetrics Discharge Summary Obstetrics Discharge Summary Date of Admission: Mar 12, 2025 Date of Discharge: Mar 12, 2025 Reason For Admission: Onset of Labor Procedures: NST Intrapartum Procedures: Spontaneous vaginal deliv Procedures: None Operative Complicat: None Discharge Diagnosis: Term -Delivered Discharge Information: Activity (as tolerated, no heavy lifting and nothing in the vagina for 6 weeks), Diet (Routine), Medications (Rx sent), Instructions (Routine), Discharge to (Home), Accompanied by (partner), Discarge date (03/12/25) Visit Coding OBGYN Date of Service: Mar 12, 2025 Billing Provider: SHWETA ELLINGTON CNM ACCOUNT ASSOCIATE Common Visit Codes: [id number]-BWJ/OBS DISCH DAY <30MIN SHWETA ELLINGTON CNM Mar 12, 2025 18:21
[2025-03-12 19:00] VITALS: BP 125/73; PULSE 73; RESP 18; TEMP 98.4; O2SAT 96
[2025-03-12 21:03] VITALS: BP 125/73; PULSE 73; RESP 17; TEMP 98.4; O2SAT 96
== END 2025-03-12 20:57 | disposition home or self-care (01) | DRG 807 ==
LOC: LDRP 08:54 → OBSVTOIN 08:54
PROVIDERS: ADMIT Obstetrics & Gynecology; ATTEND Obstetrics & Gynecology
PROC: 10E0XZZ Delivery of Products of Conception, External Approach (ICD-10-PCS; principal; 2025-03-12)
PROC: 3E0R3BZ Introduction of Anesthetic Agent into Spinal Canal, Percutaneous Approach (ICD-10-PCS; 2025-03-12)
PROC: 00HU33Z Insertion of Infusion Device into Spinal Canal, Percutaneous Approach (ICD-10-PCS; 2025-03-12)
DX: O80 Encounter for full-term uncomplicated delivery (principal); Z37.0 Single live birth; Z3A.39 39 weeks gestation of pregnancy
CPT/HCPCS: 36415; 59409; 62282; 80053; 80307; 81001; 85025; 85610; 85730; 86780; 86803; 86850; 86900; 86901; 94760; 94762; 96360; 96361; 96365; 96366; G0378; J2590

== ENCOUNTER 2025-04-04 22:04 | Emergency (ER) | payer BC ==
[~2025-04-04] VITALS: Ht 152.4 cm; Wt 63.1 kg
[~2025-04-04 22:04] MED LIST changes: -FERR30CA PO
--- NOTE | 2025-04-04 22:46 | ED.PDOC ---
Eye-HPI HPI Comments 24-YEAR-OLD FEMALE PATIENT PRESENTS TO THE ED WITH CC OF MASTITIS/ BODY ACHES AND PAINS. PT STATES SHE IS 3 WEEKS POSTPARDUM VAGINAL DELIVERY AND WENT TO HER OBGYN DUE TO MASTITIS, PT WAS GIVEN ANTIBIOTICS WHICH SHE TOOK FOR 7 DAYS, SHE STATES THE PAIN IS GETTING WORSE. PT IS A&OX4 RR EVN AND REGULAR NO. DENIES F EVER, CHILLS, NAUSEA, VOMITING, CHEST PAIN, SHORTNESS OF BREATH, DIFFICULTY BREATHING. Chief Complaint: Body Pain Time Seen by MD: 22:19 Reviewed Notes: Nurses Notes, Medications, Allergies Allergies: Coded Allergies: NO KNOWN ALLERGIES (Unverified , 06/26/23) Home Meds Active Scripts Ibuprofen Micronized (MOTRIN TABLET) 600 Mg Tb, 600 MG PO Q6HP PRN for 20 Days, #80 TAB Prov:SHWETA ELLINGTON [facility] 03/12/25 Docusate Sodium (Docusate Sodium) 100 Mg Cap, 100 MG PO HS PRN for 30 Days, #30 CAP 3 Refills Prov:SHWETA ELLINGTON [facility] 03/12/25 Reported Medications Vit W/ Ferrous Fumara ( One Daily) Daily Tab, 1 TAB PO DAILY, #30 TAB 11 Refills 06/20/23 Information Source: Patient Mode of Arrival: Ambulatory Past Medical History PAST MEDICAL HISTORY: Denies Surgical History: Denies all surgeries INSPECTOR CRYSTAL History: No Pertinent INSPECTOR CRYSTAL History Family History Family History: Reviewed,noncontributory to illness Social History Smoker: Non-Smoker Alcohol: Denies ETOH Use Drugs: Denies Drug Use All Other Systems: Reviewed and Negative (SEE HPI) Physical Exam General Appearance: No Apparent Distress, Normal HEENT: Normal ENT Inspection, Pharynx Normal, TMs Normal Neck: Full Range of Motion, Non-Tender Respiratory: Lungs Clear, No Respiratory Distress, Normal Breath Sounds Cardiovascular: No Edema, No JVD, No Murmur, No Gallop, Normal Peripheral Pulses, Regular Rate/Rhythm Breast Exam: Deferred Gastrointestinal: No Organomegaly, Non Tender, No Pulsatile Mass, Normal Bowel Sounds, Soft Genitalia: Deferred Pelvic: Deferred Rectal: Deferred Extremities: No calf tenderness, Normal capillary refill, Normal range of mot ion, No pedal edema Musculoskeletal : Apperance: Normal Neurologic: Alert, No Motor Deficits, Normal Affect, Normal Mood, No Sensory Deficits Cerebellar Function: Normal Reflexes: NOT DONE Skin: Dry, Normal Color, Warm, Other (NO TENDERNESS OR ERYTHEMA NOTED RIGHT BREAST ) Lymphatic: No Adenopathy Was a procedure done? Was a procedure done?: No EENT DIFF Eye: N/A Ear: N/A Nose: N/A Mouth: N/A Sore Throat: N/A X-Ray, Labs, Meds, VS Vital Signs Date Time Temp Pulse Resp B/P (MAP) Pulse Ox O2 Delivery O2 Flow Rate FiO2 04/05/25 05:45 98.7 125 18 102/57 (72) 97 98.7 04/05/25 03:30 99.4 112 17 123/66 (85) 95 99.4 04/04/25 23:30 98.7 109 19 100/61 (74) 98 98.7 04/04/25 23:30 109 19 98 Room Air 04/04/25 22:05 98.2 122 15 108/66 96 98.2 Lab Test 04/04/25 23:52 04/04/25 23:45 04/04/25 23:00 04/04/25 22:50 Range/Units Lactic Acid Level 0.9 0.4-2.0 mmol/L Urine Color Colorless Yellow Urine Clarity Turbid H Clear Urine pH 6.0 5.0-9.0 Urine Specific [place] 1.008 1.001-1.035 Urine Protein Negative Negative Urine Ketones Negative Negative Urine Blood Negative Negative /uL Urine Nitrite Negative Negative Urine Bilirubin Negative Negative Urine Urobilinogen Normal Negative mg/dL Urine Leukocyte Esterase 3+ Negative /uL Urine RBC 7 0 - 4 /hpf Urine Microscopic WBC 27 H 0-5 /HPF Urine Squamous Epithelial Cells Mod <5 /hpf Urine Bacteria Few H None Seen /hpf Urine Glucose Normal Normal mg/dL White Blood Count 32.2 *H 4.4-10.8 10^3/uL Red Blood Count 4.60 4.0-5.20 10^6/uL Hemoglobin 12.9 12.2-16.2 g/dL Hematocrit 39.9 36.0-46.0 % Mean Corpuscular Volume 86.8 80.0-100.0 fL Mean Corpuscular Hemoglobin 28.1 28.0-32.0 pg Mean Corpuscular Hemoglobin Concent 32.3 32.0-36.0 g/dL Red Cell Distribution Width 13.5 11.8-14.3 % Platelet Count 340 140-450 10^3/uL Mean Platelet Volume 6.7 L 6.9-10.8 fL Neutrophils (%) (Auto) 37.0-80.0 % Lymphocytes (%) (Auto) 10.0-50.0 % Monocytes (%) (Auto) 0.0-12.0 % Basophils (%) (Auto) 0.0-2.0 % Neutrophils # (Auto) 1.6-8.6 10 ^3/uL Lymphocytes # (Auto) 0.4-5.4 10 ^3/uL Monocytes # (Auto) 0-1.3 10 ^3/uL Differential Total Cells Counted 100.0 100 Neutrophils % (Manual) 93 H 37.0-80.0 Band Neutrophils % (Manual) 0 Lymphocytes % (Manual) 6 L 10.0-50.0 Monocytes % (Manual) 1 0-12 Eosinophils % (Manual) 0 0-7 Basophils % (Manual) 0 0.0-2.0 Metamyelocytes % (manual) 0 Myelocytes % (Manual) 0 Promyelocytes % (Manual) 0 Blast Cells % (Manual) 0 Reactive Lymphocytes 0 Platelet Estimate Adequate Sodium Level 136 136-145 mmol/L Potassium Level 4.3 3.5-5.1 mmol/L Chloride Level 103 98-107 mmol/L Carbon Dioxide Level 22 20-31 mmol/L Anion Gap 11 5-15 Blood Urea Nitrogen 9 9-23 mg/dL Creatinine 1.27 H 0.550-1.02 mg/dL Glomerular Filtration Rate Calc 60 >90 mL/min BUN/Creatinine Ratio 7.1 L 10.0-20.0 Serum Glucose 109 H 74-106 mg/dL Calcium Level 9.6 8.7-10.4 mg/dL Total Bilirubin 1.0 0.2-1.0 mg/dL Aspartate Amino Transferase (AST) 18 13-40 U/L Alanine Aminotransferase (ALT) 26 7-40 U/L Alkaline Phosphatase 87 46-116 U/L Total Protein 7.3 5.7-8.2 g/dL Albumin 4.3 3.2-4.8 g/dL Influenza Type A Antigen Negative Negative Influenza Type B Antigen Negative Negative SARS-CoV-2 Antigen (Rapid) Negative NEGATIVE Current Medications Medications (Trade) Dose Ordered Sig/Goran Route Start Time Stop Time Status Last Admin Vancomycin HCl 250 ml @ 250 mls/hr ONCE ONCE IV 04/05/25 03:00 04/05/25 03:59 DC 04/05/25 04:16 Sodium Chloride 1,000 ml @ 1,000 mls/hr Q1H ONCE IV 04/05/25 05:45 04/05/25 06:44 04/05/25 05:48 X-Ray, Labs, Meds, VS Comment FINDINGS: Limited evaluation of the right breast reveals a 2.5 x 1.3 x 0.7 cm anechoic focus at 5 O'clock which may represent a small abscess. Dense breast tissue noted throughout the exam. IMPRESSION: 1. Limited evaluation of the right breast reveals a 2.5 x 1.3 x 0.7 cm anechoic focus at 5 Oclock which may represent a small abscess. 2. Dense breast tissue limits evaluation. 3. Recommend follow-up at a dedicated breast imaging center. CBC white blood cell count 41253 CMP within normal limits Lactic acid negative at 0.9 Pending blood cultures UA does show positive leukocyte esterase, positive WBCs, positive bacteria possible UTI Influenza and COVID swabs negative Patient given 1 g IV vancomycin, several minutes after completing patient has started complaining of itchiness, patient was given Benadryl 25 mg IV 1 L of fluid itchiness has resolved since. Per patient failed seven day course of doxycycline. Continues with body aches fatigue noted possible abscess and right breast leukocytosis [id number]. [address] patient for admission orders for IV antibiotics. SPOKE WITH DR. MUÑOZ, RECOMMENDS PATIENT TO BE TRANSFERRED DUE TO POSSIBLE SURGICAL INTERVENTION WILL REQUIRE PLASTICS TO DRAIN ABSCESS, NO IR AVAILABLE ON THE WEEKENDS. FURTHER, CONSULTED WITH GENERAL SURGEON DR. POSEY, BASED ON LOCATION OF ABSCESS PT WILL REQUIRE PLASTICS VS GENERAL SURGEON. TRANSFER PROCESS STARTED. SPOKE WITH PLASTIC SURGEON FOR [facility] AND ACCEPTED PATIENT WE WILL DO ER TWO ER PATIENT IS STABLE FOR TRANSFER BLS. ER TWO ER REPORT GIVEN PATIENT ACCEPTED FOR TRANSFER. Time of 1ST Reevaluation: 22:19 Reevaluation 1ST: Unchanged Time of 2ND Reevaluation: 03:04 Reevaluation 2ND: Unchanged Time of 3RD Reevaluation: 04:25 Reevaluation 3RD: Unchanged Patient Education/Counseling: Diagnosis, Treatment, Need For Follow Up Family Education/Counseling: No Family Present SEPSIS Sepsis Screen Date sepsis recognized/suspect: Apr 04, 2025 Time Sepsis recognized/suspect: 2210 Recent Procedure: No On Antibiotic Therapy: No Respiratory Rate >20: No Heart Rate >90: Yes Temp<36 C (96.8 F) or >38.3 C: No SBP <90 or MAP <65 mmHG: No New Acute Mental Status Change: No Is the patient on CPAP, BIPAP,: No Physician Orders Blood Culture (04/04/25 23:41) Chest Two Views Routine (04/04/25 23:41) R Breast Ultrasound (04/05/25 01:03) Imaging Transfer Request (04/05/25 05:39) Sodium Chloride 0.9% (04/05/25 05:45) Vital Signs Date Time Temp Pulse Resp B/P (MAP) Pulse Ox O2 Delivery O2 Flow Rate FiO2 04/05/25 05:45 98.7 125 18 102/57 (72) 97 98.7 04/05/25 03:30 99.4 112 17 123/66 (85) 95 99.4 04/04/25 23:30 98.7 109 19 100/61 (74) 98 98.7 04/04/25 23:30 109 19 98 Room Air 04/04/25 22:05 98.2 122 15 108/66 96 98.2 Laboratory Tests Test 04/04/25 23:00 04/04/25 23:52 White Blood Count 32.2 10^3/uL (4.4-10.8) *H Lactic Acid Level 0.9 mmol/L (0.4-2.0) Medications Medications Dose Ordered Sig/Goran Route Start Time Stop Time Status Last Admin Dose Admin Sodium Chloride 1,000 ml @ 1,000 mls/hr Q1H ONCE IV 04/05/25 05:45 04/05/25 06:44 04/05/25 05:48 Vancomycin HCl 250 ml @ 250 mls/hr ONCE ONCE IV 04/05/25 03:00 04/05/25 03:59 DC 04/05/25 04:16 Departure 1 Departure Time of Disposition: 02:57 Impression: Primary Impression: Leukocytosis Qualified Codes: D72.829 - Elevated white blood cell count, unspecified Additional Impressions: Breast abscess of female Mastitis Disposition: 04 INTERMEDIATE CARE FACILITY Condition: Stable Discharged With: Self Critical Care Note Critical Care Time?: No Stability Stability form required: [place] 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
[2025-04-04 23:13] LABS: Hematocrit 39.9 % (36.0-46.0); Hemoglobin 12.9 g/dL (12.2-16.2); Mean Corpuscular Hemoglobin 28.1 pg (28.0-32.0); Mean Corpuscular Volume 86.8 fL (80.0-100.0)
[2025-04-04 23:27] LABS: Alanine Aminotransferase 26 U/L (7-40); Albumin 4.3 g/dL (3.2-4.8); Alkaline Phosphatase 87 U/L (46-116); Anion Gap 11 (5-15); BUN/Creatinine Ratio 7.1 (10.0-20.0); Bilirubin, Total 1.0 mg/dL (0.2-1.0); Blood Urea Nitrogen 9 mg/dL (9-23); Calcium 9.6 mg/dL (8.7-10.4); Carbon Dioxide 22 mmol/L (20-31); Chloride 103 mmol/L (98-107); Potassium 4.3 mmol/L (3.5-5.1); Sodium 136 mmol/L (136-145); Total Protein 7.3 g/dL (5.7-8.2)
[2025-04-04 23:29] LABS: COVID19 ANTIGEN SOFIA FIA NEGATIVE (NEGATIVE)
[2025-04-04 23:35] LABS: Glucose 109 mg/dL (74-106)
[2025-04-04 23:50] LABS: Total Cells Counted 100.0 (100)
--- NOTE | 2025-04-05 00:18 | DVH ---
CHEST RADIOGRAPH Indication: weakness, sob, wbc [id number] Technique: Frontal and lateral view of the chest was obtained Comparison: None FINDINGS: Lines and Tubes: None Lungs: Clear Pleura: No effusion. No pneumothorax. Cardiomediastinal contours: Unremarkable Bones: Unremarkable IMPRESSION: 1. No evidence of acute disease.
[2025-04-05 02:22] LABS: Urine Protein, UAD Negative (Negative)
--- NOTE | 2025-04-05 02:40 | DVH ---
US OF THE RIGHT BREAST INDICATION: right breast pain, WBC 54214, infection TECHNIQUE: All 4 quadrants, subareolar region and axillary region of the RIGHT breast were evaluated with ultrasound COMPARISON: Prior exam dated: None FINDINGS: Limited evaluation of the right breast reveals a 2.5 x 1.3 x 0.7 cm anechoic focus at 5 O'clock which may represent a small abscess. Dense breast tissue noted throughout the exam. IMPRESSION: 1. Limited evaluation of the right breast reveals a 2.5 x 1.3 x 0.7 cm anechoic focus at 5 Oclock whi ch may represent a small abscess. 2. Dense breast tissue limits evaluation. 3. Recommend follow-up at a dedicated breast imaging center.
[2025-04-05] MEDS: VANCOMYCIN 1GM/250ML KIT 250 ML IV ONE (04:16)
[2025-04-05] MEDS ORDERED: diphenhdrAMINE HCL 50 MG/1 ML VL IV ONE (05:45)
[2025-04-05] MEDS: SODIUM CHLORIDE 0.9% 1,000 ML IV ONE (05:48)
[2025-04-05 06:53] VITALS: BP 102/57; PULSE 125; RESP 18; TEMP 98.7; O2SAT 97
== END 2025-04-05 06:04 ==
LOC: ER 22:04
DX: N61.1 Abscess of the breast and nipple (principal); D72.829 Elevated white blood cell count, unspecified; M79.18 Myalgia, other site; R92.30 Dense breasts, unspecified; Z20.822 Contact with and (suspected) exposure to COVID-19
CPT/HCPCS: 36415; 71046; 76642; 80053; 81001; 83605; 85007; 85027; 87040; 87426; 87804; 96361; 96365; 99285; J3373; J7030